=== PATIENT | male | born 1995 | race Caucasian/White ===

== ENCOUNTER 2021-08-01 20:38 | Emergency (ER) | payer OTHER, MEDICAID ==
[~2021-08-01] VITALS: Ht 185.4 cm; Wt 132.0 kg
[2021-08-01 20:43] VITALS: BP 143/80
[2021-08-01] MEDS ORDERED: IBUPROFEN 400MG TABLET PO ONE (22:00)
[2021-08-01] MEDS ORDERED: TETANUS, DIPHTHERIA, PERTUSSIS VAC/PF 0.5ML (>10YR OLD) IM ONE (22:00)
[2021-08-01] MEDS ORDERED: IBUP-2028 MT (22:31)
[2021-08-01] MEDS ORDERED: LIDOCAINE HCL/PF 1% 10 MG/ML 5ML VIAL INFIL ONE (23:00)
[2021-08-01] MEDS ORDERED: LIDOCAINE HCL 1% 10 MG/ML 10ML VIAL IJ NR (23:00)
[2021-08-01] MEDS ORDERED: BACITRACIN ZINC OINT UDPKT TOP ONE (23:00)
== END 2021-08-02 00:31 | disposition home or self-care (01) ==
LOC: ER 20:38
DX: S91.311A Laceration without foreign body, right foot, initial encounter (principal); W18.31XA Fall on same level due to stepping on an object, initial encounter; Y93.89 Activity, other specified; Y92.89 Other specified places as the place of occurrence of the external cause; Y99.8 Other external cause status
CPT/HCPCS: 12002; 73630; 90471; 90715; 99283; A4217; J3490; Z7610

== ENCOUNTER 2022-06-14 10:54 | Emergency (ER) | payer OTHER, MEDICAID ==
[~2022-06-14] VITALS: Ht 182.9 cm; Wt 142.0 kg
[~2022-06-14 10:54] MED LIST: IBUP-2028 MT
[2022-06-14] MEDS ORDERED: TETRACAINE 0.5% OPHTH DROPS 4ML RIGHTEYE ONE ×2 (12:15→12:30)
[2022-06-14] MEDS ORDERED: FLUORESCEIN SODIUM 1MG/STRIP RIGHTEYE ONE ×2 (12:30)
[2022-06-14] MEDS ORDERED: CIPR2.5D13 RIGHTEYE (13:04)
[2022-06-14] MEDS ORDERED: DICL2.5D8 RIGHTEYE (13:04)
[2022-06-14 13:22] VITALS: BP 153/72
== END 2022-06-14 13:23 | disposition home or self-care (01) ==
LOC: ER 10:54
DX: S05.01XA Injury of conjunctiva and corneal abrasion without foreign body, right eye, initial encounter (principal); H57.11 Ocular pain, right eye; X58.XXXA Exposure to other specified factors, initial encounter; Y93.9 Activity, unspecified; Y92.9 Unspecified place or not applicable
CPT/HCPCS: 99283

== ENCOUNTER 2022-06-15 09:41 | Emergency (ER) | payer MEDICAID, OTHER ==
[~2022-06-15] VITALS: Ht 182.9 cm; Wt 155.0 kg
[~2022-06-15 09:41] MED LIST changes: +CIPR2.5D13 RIGHTEYE; +DICL2.5D8 RIGHTEYE
[2022-06-15 09:45] VITALS: BP 170/98
== END 2022-06-15 10:23 | disposition home or self-care (01) ==
LOC: ER 09:41
DX: S05.01XA Injury of conjunctiva and corneal abrasion without foreign body, right eye, initial encounter (principal); X58.XXXA Exposure to other specified factors, initial encounter; Y93.9 Activity, unspecified; Y92.9 Unspecified place or not applicable
CPT/HCPCS: 99281

== ENCOUNTER 2022-08-17 11:52 | Emergency (ER) | payer OTHER, MEDICAID ==
[~2022-08-17] VITALS: Ht 182.9 cm; Wt 131.0 kg
[2022-08-17] MEDS ORDERED: CETI10TA6 MT (13:02)
[2022-08-17] MEDS ORDERED: P50 PO (13:02)
[2022-08-17] MEDS ORDERED: FLUT9.9S BOTHNSTRLS (13:02)
[2022-08-17] MEDS ORDERED: AMOX500T2 MT (13:02)
[2022-08-17 13:15] VITALS: BP 135/77
== END 2022-08-17 13:20 | disposition home or self-care (01) ==
LOC: ER 11:52
DX: H93.11 Tinnitus, right ear (principal); H68.101 Unspecified obstruction of Eustachian tube, right ear; H91.91 Unspecified hearing loss, right ear
CPT/HCPCS: 99283

== ENCOUNTER 2023-04-16 16:23 | Emergency (ER) | payer OTHER, MEDICAID ==
[~2023-04-16] VITALS: Ht 182.9 cm; Wt 131.0 kg
[~2023-04-16 16:23] MED LIST changes: +AMOX500T2 MT; +CETI10TA6 MT; -CIPR2.5D13 RIGHTEYE; +CIPR2.5D20 RIGHTEYE; +FLUT9.9S BOTHNSTRLS; +P50 PO
[2023-04-16 16:46] VITALS: BP 169/85; PULSE 105; RESP 18; TEMP 98.4; O2SAT 99
== END 2023-04-16 20:25 | disposition home or self-care (01) ==
LOC: ER 16:23
DX: R68.89 Other general symptoms and signs (principal)
CPT/HCPCS: 73120; 99283